=== PATIENT | male | born 1970 | race Native Hawaiian/Other Pacific Islander ===

== ENCOUNTER 2022-09-13 15:39 | Emergency (ER) | payer OTHER ==
[~2022-09-13] VITALS: Ht 182.9 cm; Wt 117.9 kg
[2022-09-13 15:39] VITALS: TEMP 98.9
[2022-09-13 16:13] LABS: PLATELET COUNT 220 K/uL (142-355)
[2022-09-13 16:15] LABS: POTASSIUM 3.4 mmol/L (3.6-5.2)
[2022-09-13 18:45] VITALS: BP 120/78
== END 2022-09-13 18:45 | disposition home or self-care (01) ==
LOC: ED 15:39
PROVIDERS: Emergency Medicine Emergency Medical Services
DX: R07.89 Other chest pain (principal); F12.10 Cannabis abuse, uncomplicated
CPT/HCPCS: 36415; 80053; 80307; 81002; 83735; 83880; 84484; 85027; 85379; 85610; 93005; 96360; 99284